=== PATIENT | male | born 1960 | race Caucasian/White ===

== ENCOUNTER 2017-01-09 21:38 | Inpatient (IN) | payer SELFPAY ==
[~2017-01-09] VITALS: Ht 177.8 cm; Wt 86.6 kg
--- NOTE | 2017-01-09 21:40 | NUR ---
TO BED 1 A 53 YO MALE PATIENT [id number] FOR POSSIBLE OVERDOSE ON UNKNOWN DRUG; PER EMS, PATIENT WAS UNRESPONSIVE, PIN POINT DENI PUPILS, AND WITH SHALLOW BREATHING AT 8CPM ON THE SCENE. NARCAN 5MG X2 GIVEN BY EMS WITH LITTLE RESPONSE. UPON ARRIVAL, PATIENT REMAINS UNRESPONSIVE. PLACED ON CARDIAC AND VS MONITORING. DR VELASCO AT BEDSIDE TO [facility]. MAINTAINED PATENT AIRWAY.
--- NOTE | 2017-01-09 21:42 | NUR ---
RT PAGE PER DR VELASCO, PATIENT IS GOING TO BE INTUBATED.
--- NOTE | 2017-01-09 21:45 | NUR ---
SUCCS 150 MG GIVEN IVP ON THE RACG16 PRIOR TO INTUBATION. SAFETY MEASURES MAINTAINED.
--- NOTE | 2017-01-09 21:48 | NUR ---
DR VELASCO SUCCESSFULLY PLACED 7.5 ETT ON PATIENT AT 23CM ON THE LIP. RT AT BEDSIDE TO CONNECT TO [facility] WITH SETTINGS FOLLOWS: MODE AC RATE 16 TV 480 FIO2 40% PEEP 5 PATIENT SATTING AT 97-100% AT THIS TIME. MAINTAINED PATENT AIRWAY. WILL MONITOR CLOSELY.
[2017-01-09] MEDS ORDERED: PROPOFOL 100 ML IV ONE (21:56)
[2017-01-09] MEDS ORDERED: SUCCINYLCHOLINE CHLORIDE 20 MG/ML VIAL IV ONE (22:00)
[2017-01-09] MEDS ORDERED: IV NS 0.9% 1,000 ML BAG IV ONE ×2 (22:00→22:30)
[2017-01-09] MEDS: PROPOFOL 100 ML IV PRN (22:00)
[2017-01-09 22:04] VITALS: BP 124/72
--- NOTE | 2017-01-09 22:08 | NUR ---
PT ORALLY INTUBATED WITH 7.5 ETT TUBE AT 23 CM ON THE LIP, FOR AIRWAY PROTECTION. TUBE SECURED AND PATENT. PT PLACE ON [facility] WITH NOTED SETTINGS. AC 16 550, 100% + 5. PT APPEARS TO TOLERATE SETTING WELL NO ADVERSE REACTION. AMBU BAG AT BEDSIDE. WILL MONITOR FURTHER. Addendum: 01/09/17 at 2212 by VILMA WALKER RT Amended: Links added.
--- NOTE | 2017-01-09 22:09 | NUR ---
xr at bedside.
--- NOTE | 2017-01-09 22:10 | NUR ---
placed hernandes catheter 16f aseptically, drained about 200cc yellow urine. Collected sample, sent to lab.
--- NOTE | 2017-01-09 22:12 | NUR ---
placed an oral-gastro tube per Dr Hester orders, entry at 73cm, taped securely. Gurgling sounds heard upon auscultating the epigastric area and suctioned a small amount of brownish secretions.
--- NOTE | 2017-01-09 22:20 | NUR ---
PT NOT READY FOR CT SCANS, ER WILL CALL WHEN READY.
[2017-01-09 22:26] LABS: BASOPHILS % (AUTO) 0.6 % (0.0-2.0); EOSINOPHILS # (AUTO) 0.1 /CMM (0.0-0.7); EOSINOPHILS % (AUTO) 2.2 % (0.0-6.0); HEMATOCRIT 42 % (39-51); HEMOGLOBIN 14.4 g/dL (13.5-17.5); LYMPHOCYTES # (AUTO) 1.6 /CMM (0.8-4.8); LYMPHOCYTES % (AUTO) 27.9 % (20.0-44.0); MEAN CORPUSCULAR HEMOGLOBIN 31 PG (26.0-33.0); MEAN CORPUSCULAR HGB CONC 34 g/dl (31.0-36.0); MEAN CORPUSCULAR VOLUME 90 fL (80-96); MONOCYTES # (AUTO) 0.4 /CMM (0.1-1.30); MONOCYTES % (AUTO) 7.8 % (2.0-12.0); NEUTROPHILS # (AUTO) 3.4 /CMM (1.8-8.9); NEUTROPHILS % (AUTO) 61.5 % (43.0-81.0); PLATELET COUNT (AUTO) 171 /CMM (150-450); RDW COEFFICIENT OF VARIATION 13.2 (11.5-15.0); RED BLOOD CELL COUNT(AUTO) 4.68 MIL/uL (4.5-6.0); WHITE BLOOD COUNT (AUTO) 5.6 K/uL (4.3-11.0)
[2017-01-09 22:30] LABS: APPEARANCE,URINE CLEAR (CLEAR); BILIRUBIN,URINE NEGATIVE (NEGATIVE); BLOOD, URINE 1+ Ery/uL (NEGATIVE); COLOR,URINE YELLOW (YELLOW); KETONES,URINE 1+ (NEGATIVE); LEUKOCYTE ESTERASE ,URINE NEGATIVE (NEGATIVE); NITRITE, URINE NEGATIVE (NEGATIVE); PH,URINE 5.5 (5.0-8.0); PROTEIN,URINE NEGATIVE (NEGATIVE); UGLUCOSE NEGATIVE (NEGATIVE); UROBILINOGEN,URINE 0.2 EU/dL (0.2)
[2017-01-09 22:36] LABS: CALCIUM, SERUM 8.7 mg/dL (8.5-10.1); CARBON DIOXIDE 27 mmol/L (21-32); CHLORIDE 107 mmol/L (98-107); CREATININE 1.4 mg/dL (0.6-1.3); GLUCOSE 94 mg/dL (74-106); POTASSIUM 4.7 mmol/L (3.5-5.1); SODIUM SERUM 148 mmol/L (136-145); UREA NITROGEN, BLOOD 22 mg/dL (7-18)
[2017-01-09 22:40] LABS: BACTERIA,URINE None seen /HPF (None Seen); RBC,URINE 0-2 /HPF (0-2); SQUAMOUS EPITHELIAL CELL,UR Rare /HPF (None Seen); WBC,URINE 0-2 /HPF (0-3)
[2017-01-09 22:41] LABS: INR 0.96 (0.87-1.13)
[2017-01-09 22:42] LABS: ALANINE AMINOTRANSFERASE 37 U/L (12-78); ALBUMIN 3.7 g/dL (3.4-5.0); ALCOHOL, BLOOD 30 mg/dL (0-0); ALKALINE PHOSPHATASE 49 U/L (46-116); ASPARTATE AMINOTRANSFERASE 32 U/L (15-37); BILIRUBIN,DIRECT 0.1 mg/dL (0.0-0.2); BILIRUBIN,TOTAL 0.5 mg/dL (0.2-1.0); TOTAL PROTEIN, SERUM 6.7 g/dL (6.4-8.2)
[2017-01-09 22:44] LABS: ACETAMINOPHEN 0 ug/ml (10-30); SALICYLATE 0.5 mg/dL (2.8-20.0); TROPONIN I < 0.017 ng/mL (0.00-0.056)
--- NOTE | 2017-01-09 22:50 | NUR ---
patient came back from ct.
--- NOTE | 2017-01-09 23:02 | NUR ---
ett advanced by RT Nunn and is now at [address] lip per Dr Tijerina's orders.
[2017-01-09 23:08] VITALS: BP 122/72
--- NOTE | 2017-01-09 23:08 | NUR ---
ETT TUBE ADVANCED 3CM PER MD POWER. Addendum: 01/09/17 at 2308 by VILMA WALKER RT Amended: Links added.
--- NOTE | 2017-01-09 23:17 | NUR ---
Report given to Mary Alice MEADE for ICU admission and claribel.
--- NOTE | 2017-01-09 23:58 | NUR ---
Per Dr Tijerina, hold propofol at this time.
[2017-01-10] VITALS (29 sets, daily range): BP systolic 110–161; BP diastolic 64–99
--- NOTE | 2017-01-10 00:15 | NUR ---
Dr Tijerina at bedside. Bolus 80mg given to patient per Dr Tijerina's verbal orders. Et tube readjusted and now at 24cm at the lip.
[2017-01-10] MEDS ORDERED: ONDANSETRON HCL/PF 4 MG/2 ML VIAL IVP PRN (00:30)
[2017-01-10] MEDS ORDERED: ACETAMINOPHEN 650 MG/SUPP.RECT RC PRN (00:30)
--- NOTE | 2017-01-10 01:23 | NUR ---
Transferred patient to icu floor via als protocol, no incident noted.
--- NOTE | 2017-01-10 01:25 | NUR ---
TRUCKER HAND INITIAL NOTE RECEIVED PT FROM ER. ADMITTED FOR ALOC, RESP FAILURE, POSSIBLE OD OF UNKNOWN DRUG. PT IS INTUBATED AND SEDATED.ET 7.5 24CM AT THE LIP. VENT SETTINGS AC 16 TV 500 FIO2 40 PEEP 5. TOLERATING CURRENT VENT SETTINGS. LUNG SOUNDS CLEAR IN ALL BASES. BOWEL SOUNDS PRESENT. BAÑUELOS INTACT AND DRAINING YELLOW URINE. IV PATENT AND INTACT WITH PROPOFOL RUNNING. PULSES PRESENT. SKIN INTACT. PUPILS LEFT IS SLUGGISH, RIGHT BRISK 1CM. RESTRAINTS FOR SAFETY. BED IN LOW LOCKED POSITION. WILL CONTINUE TO MONITOR. Addendum: 01/10/17 at 0400 by MAYTE HO RN ETT 7.5 30CM AT THE LIP.
[2017-01-10] MEDS: IV NS 0.9% 1,000 ML IV PRN ×3 (01:35→16:18)
[2017-01-10] MEDS ORDERED: ENOXAPARIN SODIUM 40 MG/0.4 ML DISP.SYRIN SQ ONE (01:42)
[2017-01-10] MEDS: PROPOFOL 100 ML IV PRN ×5 (01:44→11:22)
[2017-01-10] MEDS: ENOXAPARIN SODIUM 40 MG/0.4 ML DISP.SYRIN SQ SCH (01:45)
[2017-01-10] MEDS ORDERED: LORAZEPAM INJ 2 MG/ML VIAL ONE (02:09)
[2017-01-10] MEDS: LORAZEPAM INJ 2 MG/ML VIAL IV PRN ×2 (02:10→09:09)
--- NOTE | 2017-01-10 03:00 | NUR ---
CERTIFIED LEGAL INVESTIGATOR PT AWAKE, PT REMAINS INTUBATED AND SEDATED ON PROPOFOL. PROPOFOL TITRATED UP PER PROTOCOL. VAIBHAV AUDIO DIRECTOR WAS CALLED AND ORDERS RECEIVED FOR AGITATION. WILL CONTINUE TO MONITOR.
[2017-01-10 04:36] LABS: BASOPHILS % (AUTO) 0.2 % (0.0-2.0); EOSINOPHILS % (AUTO) 0.1 % (0.0-6.0); HEMATOCRIT 39 % (39-51); HEMOGLOBIN 13.4 g/dL (13.5-17.5); LYMPHOCYTES # (AUTO) 1.1 /CMM (0.8-4.8); LYMPHOCYTES % (AUTO) 11.1 % (20.0-44.0); MEAN CORPUSCULAR HEMOGLOBIN 31 PG (26.0-33.0); MEAN CORPUSCULAR HGB CONC 34 g/dl (31.0-36.0); MEAN CORPUSCULAR VOLUME 90 fL (80-96); MONOCYTES # (AUTO) 0.7 /CMM (0.1-1.30); MONOCYTES % (AUTO) 6.9 % (2.0-12.0); NEUTROPHILS # (AUTO) 8.1 /CMM (1.8-8.9); NEUTROPHILS % (AUTO) 81.7 % (43.0-81.0); PLATELET COUNT (AUTO) 161 /CMM (150-450); RDW COEFFICIENT OF VARIATION 13.6 (11.5-15.0); RED BLOOD CELL COUNT(AUTO) 4.35 MIL/uL (4.5-6.0); WHITE BLOOD COUNT (AUTO) 9.9 K/uL (4.3-11.0)
[2017-01-10 04:48] LABS: CALCIUM, SERUM 7.9 mg/dL (8.5-10.1); CREATININE 1.1 mg/dL (0.6-1.3); MAGNESIUM 1.9 mg/dL (1.8-2.4); PHOSPHORUS 2.9 mg/dL (2.5-4.9); POTASSIUM 3.9 mmol/L (3.5-5.1)
--- NOTE | 2017-01-10 08:00 | NUR ---
AIRPORT MAINTENANCE LABORER NOTE Received patient on ventilator. Heavily sedated on propofol drip. Soft wrist restraints in place to prevent pulling of lines due to periods of agitation. Patient unable to follow simple commands. Withdraws to tactile stimuli. OG tube in place but is clamped. Hills catheter draining clear slightly greenish tinge urine. Sinus rhythm at 90 bpm. Pulses are palpable. IV in RAC infusing propofol at 50 mcg/kg/min. NS infusing at 125 cc/hour. Skin is warm dry and intact. IV in LAC heplocked. Temp is 99.9.
[2017-01-10] MEDS ORDERED: ETOMIDATE 2 MG/ML VIAL IV ONE (09:00)
[2017-01-10] MEDS ORDERED: FEE EMEERGENCY 1 MIN EA MC ONE (09:00)
[2017-01-10] MEDS ORDERED: SUCCINYLCHOLINE CHLORIDE 20 MG/ML VIAL IV ONE (09:00)
--- NOTE | 2017-01-10 09:10 | NUR ---
NOTED PT BITING TUBE AND REACHING FOR ETT TUBE. DIPRIVAN AT 50MCG GAVE PRN ATIVAN FOR SEDATION.
[2017-01-10 09:42] LABS: ABG BASE EXCESS 0.1 mmol/L; ABG OXYGEN SATURATION 97.5 % (92.0-98.5); ABG PCO2 31.5 mmHg (35.0-45.0); ABG PH 7.477 (7.350-7.450); ABG PO2 109.4 mmHg (75.0-100.0); AaDO2 139.6 mmHg; COHb 0.3 % (0.5-1.5); MetHb 0.6 % (0.0-1.5); O2Hb 96.6 % (94.0-97.0); PEEP,BG 5 cm H2O; SITE, ABG Left Radial; VT, ABG 500 mL
--- NOTE | 2017-01-10 10:03 | NUR ---
NON ADMINISTERED, LOVENOX AND ATIVAN THEY WERE GIVEN ON PM SHIFT. CLEARING OUT THE EMAR FOR PT SAFETY.
[2017-01-10] MEDS: FAMOTIDINE/PF INJ 20 MG/2 ML VIAL IV SCH ×2 (10:04→21:25)
--- NOTE | 2017-01-10 11:30 | NUR ---
REFRIGERATING MACHINE OPERATOR NOTE FIO2 titrated down to 35% per Dr. Sullivan.
[2017-01-10] MEDS: ACETAMINOPHEN 650 MG/20.3 ML UDC NG PRN (13:07)
--- NOTE | 2017-01-10 13:54 | NUR ---
SEDATION VACATION: DIPRIVAN TITRATED TO 30MCG. PT OPENS EYES AND HE FOLLOWS COMMANDS TO SQUEEZE HANDS BILATERALLY. SIGNIFICANT AGITATION BITING AT ETT TUBE, NON COMBATIVE, BUT HIS HEART RATE GOES TO ST AT 115 AND HE IS REACHING FOR ETT TUBE. I ORIENTED HIM TO THE SITUATION AND THE PLAN OF CARE, NO EXTUBATION ORDERS FOR TODAY PER DR. VERGARA WHO IS ON THE UNIT. TITRATED THE SEDATION BACK TO 40MCG
--- NOTE | 2017-01-10 15:00 | NUR ---
PERSONAL DRIVER Patient extubated per Dr. Encarnacion. Restraints removed. Addendum: 01/10/17 at 1529 by MANNIE GARZA RN Patient now on 2 liters nasal cannula.
--- NOTE | 2017-01-10 16:00 | NUR ---
DR. VERGARA IN TO EVALUATE THE PATIENT. PLACES HIM ON CPAP FIRST AFTER TITRATING OFF DIPRIVAN AND THE PT IS AWAKE, HE PASSES CPAP TRIAL THEN DR. VERGARA GIVES THE OKAY TO EXTUBATE. PT EXTUBATED AT 1530, TOLERATES THE PROCEDURE WELL. HAS A RASPY VOICE BUT IS ABLE TO RECALL SOME OF THE EVENTS LEADING UP TO HIS HOSPITALIZATION. ORAL CARE RENDERED WITH MOUTHWASH, PT SWALLOWED THE MOUTHWASH EVEN THOUGH I INSTRUCTED HIM TO SPIT IT OUT. ABLE TO COUGH PRODUCTIVELY, WITH MINIMAL SECRETIONS SPITTED OUT. FAMILY NOTIFIED.
--- NOTE | 2017-01-10 16:40 | NUR ---
Patient's parents and girlfriend are at bedside. Patient alert and oriented x 3 with no c/o pain. Still tachycardic at 109 bpm.
--- NOTE | 2017-01-10 16:46 | NUR ---
BEDSIDE NURSING SWALLOW EVAL PERFORMED PT ABLE TO SWALLOW WATER (THIN LIQ) WITH NO SIGNS OF ASPIRATION OR POCKETING. NO COUGHING NOTED. ASKED HIM TO COUGH AND BRING UP SECRETIONS ON HIS OWN WHICH HE WAS ABLE TO DO WELL. MD NOTIFIED AND OKAYS TO RESTART DIET, PT ASKING FOR DINNER. FAMILY AT BEDSIDE UPDATED ABOUT HIS STATUS AND FURTHER PLAN OF CARE FOR OBSERVATION.
--- NOTE | 2017-01-10 17:56 | NUR ---
Patient was started on Regular diet and is now eating dinner. Family and girlfriend came to visit this afternoon. Heart rate still 108 but otherwise patient is doing well with no c/o pain or difficulty breathing. Still on 2 liters nasal cannula.
--- NOTE | 2017-01-10 20:00 | NUR ---
CLINICAL LABORATORY SCIENTIST NOTES RECEIVED PT IN BED ASLEEP, EASILY AROUSABLE. ON ROOM AIR, GREER WELL. A/O X3. TELE READS ST AT 109 BPM. BAÑUELOS CATH IN PLACED, DRAINING TO CLEAR YELLOW URINE. RAC 16G IV AND LAC 16G IV, RUNNING NS AT 125 ML/HR. SKIN INTACT, SIDE RAILS X2, CALL LIGHT WITHIN REACH, BED LOW AND LOCKED. HOB ELEVATED.
[2017-01-11] VITALS (10 sets, daily range): BP systolic 82–148; BP diastolic 59–102
[2017-01-11] MEDS: ENOXAPARIN SODIUM 40 MG/0.4 ML DISP.SYRIN SQ SCH (00:42)
[2017-01-11] MEDS: IV NS 0.9% 1,000 ML IV PRN (00:42)
--- NOTE | 2017-01-11 01:00 | NUR ---
CORRECTIONAL CASE RECORDS SUPERVISOR NOTES PT REMAINS ASLEEP. APPEARS COMFORTABLE AND RELAXED. ON ROOM AIR, GREER WELL.
[2017-01-11 05:40] LABS: ABG BASE EXCESS -0.7 mmol/L; ABG OXYGEN SATURATION 50.7 % (92.0-98.5); ABG PCO2 54.1 mmHg (35.0-45.0); ABG PH 7.309 (7.350-7.450); ABG PO2 30.2 mmHg (75.0-100.0); COHb 0.7 % (0.5-1.5); MetHb 0.5 % (0.0-1.5); O2Hb 50.1 % (94.0-97.0); PEEP,BG 5 cm H2O; VT, ABG 500 mL
[2017-01-11] MEDS: ACETAMINOPHEN 650 MG/20.3 ML UDC NG PRN (07:22)
--- NOTE | 2017-01-11 07:32 | NUR ---
QUALITY IMPROVEMENT MANAGER NOTE Received 56 year old male patient alert and oriented x 3. Has full strength of all extremities. Pupils 3 mm equal, round and reactive. Vital signs stable. Gave tylenol 650 mg po for headache. Hills catheter draining yellow clear urine. Skin warm, dry and intact.
[2017-01-11] MEDS: FAMOTIDINE/PF INJ 20 MG/2 ML VIAL IV SCH (08:29)
--- NOTE | 2017-01-11 10:00 | NUR ---
TOP CLOSER NOTE Discharge orders were received and patient was given discharge instructions. He refused the flu vaccine. He was also given written information about MRSA, Drug overdose, Flu vaccines, and smoking cessation. IVs in both right and left ACs were removed. Patient signed belongings form and left the unit accompanied by his girlfriend. Patient wa able to void after removal of ehrnandes and ambulated by himself.
== END 2017-01-11 09:50 | disposition home or self-care (01) | DRG 917 ==
LOC: ER 21:40 → EDBD 22:06 → ICU 22:06
PROVIDERS: ADMIT Nurse Practitioner Acute Care; ATTEND Nurse Practitioner Acute Care
PROC: 5A1935Z Respiratory Ventilation, Less than 24 Consecutive Hours (ICD-10-PCS; principal; 2017-01-09)
PROC: 0BH17EZ Insertion of Endotracheal Airway into Trachea, Via Natural or Artificial Opening (ICD-10-PCS; principal; 2017-01-09)
DX: T41.291A Poisoning by other general anesthetics, accidental (unintentional), initial encounter (principal); G92 Toxic encephalopathy; J96.01 Acute respiratory failure with hypoxia; N17.9 Acute kidney failure, unspecified; E87.2 Acidosis; E87.0 Hyperosmolality and hypernatremia; M62.82 Rhabdomyolysis; Y92.009 Unspecified place in unspecified non-institutional (private) residence as the place of occurrence of the external cause; F12.90 Cannabis use, unspecified, uncomplicated; E86.0 Dehydration; F10.129 Alcohol abuse with intoxication, unspecified; I10 Essential (primary) hypertension
CPT/HCPCS: 36415; 36600; 70450-TC; 71010-TC; 72125-TC; 80048-TC; 80076-TC; 80305; 81000-TC; 82550-TC; 82553-TC; 82803-TC; 82962-TC; 83605-TC; 83735-TC; 84100-TC; 84484-TC; 85025-TC; 85730-TC; 87040-TC; 87081-TC; 87086-TC; 94002-TC; 94640-TC; 99082-TC; G0480; J0330; J1650; J2060; J3490; J7030